=== PATIENT | female | born 1935 | race Caucasian/White ===

== ENCOUNTER 2024-02-19 13:00 | Inpatient (IN) | payer MEDICARE ==
[~2024-02-19] VITALS: Ht 154.9 cm; Wt 60.8 kg
[~2024-02-19 13:00] MED LIST: ASPIRIN81 MG PO; CALCIUM600 MG; CLOPIDOGREL75 MG PO; CRESTOR10 MG PO; HYDROCHLOROTHIA25 MG; K-DUR10 MEQ PO; LAMOTRIGINE100 MG PO; LAMOTRIGINE25 MG; LEVOTHYROXINE50 MCG PO; LOSARTAN POTAS100 MG PO; LOSARTAN POTASS25 MG PO; MELATONIN3 MG PO; NAMENDA10 MG PO; OLANZAPINE5 MG PO; TROSPIUM CHLORI20 MG
[2024-02-19 15:20] LABS: BASOPHILS % 0.2 % (0.0-1.0); EOSINOPHILS % 0.1 % (0.0-6.0); HEMATOCRIT 28.9 % (34.2-44.1); HEMOGLOBIN 9.9 g/dL (12.0-16.0); LYMPHOCYTES # (AUTO) 0.9 (1.0-3.2); MEAN CORPUSCULAR HEMOGLOBIN 30.6 pg (28-32); MEAN CORPUSCULAR HGB CONC 34.3 g/dL (31-35); MEAN CORPUSCULAR VOLUME 89.2 fL (81-99); MONOCYTES # (AUTO) 1.1 (0.2-0.8); MONOCYTES % 6.3 % (4.4-11.3); NEUTROPHILS # (AUTO) 15.6 (2.1-6.9); NEUTROPHILS % 87.7 % (38.7-80.0); PLATELET COUNT 322 x10e3/uL (140-360); RED BLOOD COUNT 3.24 x10e6/uL (3.6-5.1); RED CELL DISTRIBUTION WIDTH 13.9 % (11.7-14.4); WHITE BLOOD COUNT 17.84 x10e3/uL (4.8-10.8)
[2024-02-19 15:27] LABS: BILIRUBIN,URINE NEGATIVE (NEGATIVE); CLARITY,URINE CLEAR (CLEAR); COLOR,URINE YELLOW (YELLOW); GLUCOSE, URINE NEGATIVE (NEGATIVE); KETONES,URINE NEGATIVE (NEGATIVE); LEUKOCYTE ESTERASE ,URINE NEGATIVE (NEGATIVE); NITRITE,URINE NEGATIVE (NEGATIVE); PH,URINE 6 (5 - 7); PROTEIN,URINE DIPSTICK NEGATIVE (NEGATIVE); URINE UROBILINOGEN 0.2 mg/dL (0.2 - 1)
[2024-02-19 15:41] LABS: BACTERIA,URINE MODERATE /HPF; EPITHELIAL CELLS,URINE FEW /LPF
[2024-02-19 15:41] LABS: ALBUMIN/GLOBULIN RATIO 1.1 (0.8-2.0); ANION GAP 18.1 mmol/L (8-16); CREATININE, SERUM 1.42 mg/dL (0.57-1.11); TOTAL PROTEIN 7.5 g/dL (6.5-8.1)
[2024-02-19 15:42] LABS: POTASSIUM 3.1 mmol/L (3.5-5.1)
[2024-02-19] MEDS ORDERED: LASIX40 MG PO (16:13)
[2024-02-19] MEDS ORDERED: ONDANSETRON HCL INJ 2MG/ML 2ML 2 MG/ML VIAL IV PRN (16:30)
[2024-02-19] MEDS: FUROSEMIDE INJ 10 MG/ML 4 ML VIAL IV ONE (16:40)
[2024-02-19] MEDS: SODIUM CHLORIDE 0.9% 1000ML 1,000 ML IV SCH (16:41)
[2024-02-19] MEDS: POTASSIUM CHLORIDE 20 MEQ TAB CR PO ONE (17:33)
[2024-02-19 20:30] VITALS: PULSE 80; RESP 23; TEMP 98.5
[2024-02-19 22:00] VITALS: BP 129/66; PULSE 80; RESP 23; TEMP 98.5; O2SAT 97
[2024-02-19 22:05] VITALS: BP 117/54; PULSE 80; RESP 16; TEMP 98.7; O2SAT 96
[2024-02-20] VITALS (7 sets, daily range): BP systolic 98–129; BP diastolic 48–68; PULSE 72–81; RESP 16–20; TEMP 97.6–98.8; O2SAT 96–100
[2024-02-20] MEDS: FUROSEMIDE INJ 10 MG/ML 4 ML VIAL IV SCH (05:54)
[2024-02-20 06:07] LABS: BASOPHILS % 0.2 % (0.0-1.0); EOSINOPHILS # (AUTO) 0.2 (0.0-0.4); EOSINOPHILS % 2.1 % (0.0-6.0); HEMATOCRIT 31.1 % (34.2-44.1); LYMPHOCYTES # (AUTO) 1.4 (1.0-3.2); LYMPHOCYTES % 13.8 % (18.0-39.1); MEAN CORPUSCULAR HEMOGLOBIN 29.9 pg (28-32); MEAN CORPUSCULAR HGB CONC 32.2 g/dL (31-35); MEAN CORPUSCULAR VOLUME 93.1 fL (81-99); MONOCYTES # (AUTO) 0.8 (0.2-0.8); MONOCYTES % 7.6 % (4.4-11.3); NEUTROPHILS # (AUTO) 7.6 (2.1-6.9); NEUTROPHILS % 75.8 % (38.7-80.0); PLATELET COUNT 334 x10e3/uL (140-360); RED BLOOD COUNT 3.34 x10e6/uL (3.6-5.1); RED CELL DISTRIBUTION WIDTH 14.1 % (11.7-14.4); WHITE BLOOD COUNT 9.96 x10e3/uL (4.8-10.8)
[2024-02-20 06:24] LABS: ALBUMIN 3.7 g/dL (3.5-5.0); ALBUMIN/GLOBULIN RATIO 1.3 (0.8-2.0); ANION GAP 15.6 mmol/L (8-16); BILIRUBIN,TOTAL 0.6 mg/dL (0.2-1.2); CALCIUM 8.8 mg/dL (8.4-10.2); CREATININE, SERUM 1.4 mg/dL (0.57-1.11); POTASSIUM 3.6 mmol/L (3.5-5.1); TOTAL PROTEIN 6.6 g/dL (6.5-8.1)
[2024-02-20] MEDS: LEVOTHYROXINE SODIUM 25 MCG TABLET PO SCH (09:00)
[2024-02-20] MEDS: MEMANTINE 10 MG TAB PO SCH (09:18)
[2024-02-20] MEDS: ASPIRIN 81 MG CHEW TAB PO SCH (09:18)
[2024-02-20] MEDS: LAMOTRIGINE 100 MG TAB PO SCH (09:18)
[2024-02-20] MEDS: SIMVASTATIN 20 MG TAB PO SCH (09:19)
[2024-02-20] MEDS: CLOPIDOGREL BISULFATE 75 MG TAB PO SCH (09:19)
[2024-02-20] MEDS: OLANZAPINE 5 MG TAB PO SCH (09:19)
[2024-02-20] MEDS: LOSARTAN POTASSIUM 25 MG TAB PO SCH (09:19)
[2024-02-20] MEDS: BENZONATATE 100 MG CAP PO PRN (13:37)
[2024-02-20] MEDS: MELATONIN 5 MG TABLET PO SCH (20:38)
[2024-02-21 00:35] VITALS: BP 113/68; PULSE 72; RESP 17; TEMP 98; O2SAT 99
[2024-02-21 05:18] VITALS: BP 125/60; PULSE 67; RESP 16; TEMP 98; O2SAT 100
[2024-02-21 05:52] LABS: BASOPHILS # (AUTO) 0.1 (0.0-0.1); BASOPHILS % 0.9 % (0.0-1.0); EOSINOPHILS # (AUTO) 0.4 (0.0-0.4); EOSINOPHILS % 5.6 % (0.0-6.0); HEMATOCRIT 29.4 % (34.2-44.1); HEMOGLOBIN 9.8 g/dL (12.0-16.0); LYMPHOCYTES # (AUTO) 1.5 (1.0-3.2); LYMPHOCYTES % 22.6 % (18.0-39.1); MEAN CORPUSCULAR HEMOGLOBIN 30.5 pg (28-32); MEAN CORPUSCULAR HGB CONC 33.3 g/dL (31-35); MEAN CORPUSCULAR VOLUME 91.6 fL (81-99); MONOCYTES # (AUTO) 0.7 (0.2-0.8); NEUTROPHILS # (AUTO) 3.9 (2.1-6.9); NEUTROPHILS % 59.3 % (38.7-80.0); PLATELET COUNT 295 x10e3/uL (140-360); RED BLOOD COUNT 3.21 x10e6/uL (3.6-5.1); RED CELL DISTRIBUTION WIDTH 14.3 % (11.7-14.4); WHITE BLOOD COUNT 6.63 x10e3/uL (4.8-10.8)
[2024-02-21 06:06] LABS: ANION GAP 14.5 mmol/L (8-16); CALCIUM 8.6 mg/dL (8.4-10.2); CREATININE, SERUM 1.28 mg/dL (0.57-1.11); POTASSIUM 3.5 mmol/L (3.5-5.1)
[2024-02-21 08:20] VITALS: BP 132/66; PULSE 67; RESP 18; TEMP 98.2; O2SAT 98
[2024-02-21 09:00] VITALS: BP 125/60; PULSE 67; RESP 16; TEMP 98; O2SAT 100
[2024-02-21 20:00] VITALS: BP 125/60; PULSE 67; RESP 16; TEMP 98; O2SAT 100
[2024-02-21 21:19] VITALS: BP 139/57; PULSE 78; RESP 17; TEMP 98.4; O2SAT 96
[2024-02-22] VITALS (7 sets, daily range): BP systolic 97–124; BP diastolic 48–94; PULSE 70–85; RESP 16–20; TEMP 97.4–98.3; O2SAT 96–100
[2024-02-22] MEDS ORDERED: PROPOFOL IV EMULSION 50 ML IV ONE (06:59)
[2024-02-22] MEDS ORDERED: PHENYLEPHRINE HCL 1% 10 MG/ML VIAL ONE (06:59)
[2024-02-22] MEDS ORDERED: SODIUM CHLORIDE 0.9% 100 ML ONE (07:00)
[2024-02-22 07:38] LABS: BASOPHILS # (AUTO) 0.1 (0.0-0.1); BASOPHILS % 0.7 % (0.0-1.0); EOSINOPHILS # (AUTO) 0.4 (0.0-0.4); HEMATOCRIT 33.1 % (34.2-44.1); HEMOGLOBIN 10.3 g/dL (12.0-16.0); LYMPHOCYTES # (AUTO) 1.3 (1.0-3.2); LYMPHOCYTES % 18.2 % (18.0-39.1); MEAN CORPUSCULAR HEMOGLOBIN 29.6 pg (28-32); MEAN CORPUSCULAR HGB CONC 31.1 g/dL (31-35); MEAN CORPUSCULAR VOLUME 95.1 fL (81-99); MONOCYTES # (AUTO) 0.6 (0.2-0.8); NEUTROPHILS # (AUTO) 4.6 (2.1-6.9); NEUTROPHILS % 65.5 % (38.7-80.0); PLATELET COUNT 339 x10e3/uL (140-360); RED BLOOD COUNT 3.48 x10e6/uL (3.6-5.1); RED CELL DISTRIBUTION WIDTH 14.5 % (11.7-14.4); WHITE BLOOD COUNT 6.97 x10e3/uL (4.8-10.8)
[2024-02-22 08:04] LABS: ALBUMIN 3.6 g/dL (3.5-5.0); ALBUMIN/GLOBULIN RATIO 1.3 (0.8-2.0); ANION GAP 15.4 mmol/L (8-16); BILIRUBIN,TOTAL 0.7 mg/dL (0.2-1.2); CALCIUM 9.2 mg/dL (8.4-10.2); CREATININE, SERUM 1.48 mg/dL (0.57-1.11); MAGNESIUM 2.1 MG/DL (1.3-2.1); TOTAL PROTEIN 6.4 g/dL (6.5-8.1)
[2024-02-22 08:07] LABS: POTASSIUM 3.4 mmol/L (3.5-5.1)
[2024-02-22 16:14] LABS: ANION GAP 19.6 mmol/L (8-16); CALCIUM 9.4 mg/dL (8.4-10.2); CREATININE, SERUM 1.97 mg/dL (0.57-1.11); MAGNESIUM 1.9 MG/DL (1.3-2.1); POTASSIUM 3.6 mmol/L (3.5-5.1)
[2024-02-23] VITALS (9 sets, daily range): BP systolic 111–141; BP diastolic 51–67; PULSE 67–95; RESP 16–21; TEMP 97.9–99; O2SAT 94–100
[2024-02-23] MEDS ORDERED: ONDANSETRON HCL 4 MG ORAL DISINTEGRATING TAB PO PRN (13:45)
[2024-02-24] VITALS (9 sets, daily range): BP systolic 98–143; BP diastolic 45–74; PULSE 74–86; RESP 15–16; TEMP 97.2–98.3; O2SAT 92–100
[2024-02-24 06:03] LABS: BASOPHILS % 0.6 % (0.0-1.0); EOSINOPHILS # (AUTO) 0.3 (0.0-0.4); EOSINOPHILS % 4.9 % (0.0-6.0); HEMATOCRIT 31.2 % (34.2-44.1); HEMOGLOBIN 9.9 g/dL (12.0-16.0); LYMPHOCYTES # (AUTO) 1.3 (1.0-3.2); LYMPHOCYTES % 18.7 % (18.0-39.1); MEAN CORPUSCULAR HEMOGLOBIN 30.2 pg (28-32); MEAN CORPUSCULAR HGB CONC 31.7 g/dL (31-35); MEAN CORPUSCULAR VOLUME 95.1 fL (81-99); MONOCYTES # (AUTO) 0.6 (0.2-0.8); MONOCYTES % 8.8 % (4.4-11.3); NEUTROPHILS # (AUTO) 4.6 (2.1-6.9); NEUTROPHILS % 66.4 % (38.7-80.0); PLATELET COUNT 309 x10e3/uL (140-360); RED BLOOD COUNT 3.28 x10e6/uL (3.6-5.1); RED CELL DISTRIBUTION WIDTH 14.2 % (11.7-14.4); WHITE BLOOD COUNT 6.94 x10e3/uL (4.8-10.8)
[2024-02-24 06:41] LABS: ALBUMIN 3.3 g/dL (3.5-5.0); ALBUMIN/GLOBULIN RATIO 1.3 (0.8-2.0); ANION GAP 14.4 mmol/L (8-16); BILIRUBIN,TOTAL 0.6 mg/dL (0.2-1.2); CALCIUM 8.8 mg/dL (8.4-10.2); CREATININE, SERUM 1.55 mg/dL (0.57-1.11); POTASSIUM 3.4 mmol/L (3.5-5.1); TOTAL PROTEIN 5.8 g/dL (6.5-8.1)
[2024-02-25] VITALS (7 sets, daily range): BP systolic 127–136; BP diastolic 46–62; PULSE 71–86; RESP 16–17; TEMP 97.7–98.1; O2SAT 96–100
[2024-02-26] VITALS (9 sets, daily range): BP systolic 89–146; BP diastolic 48–80; PULSE 72–91; RESP 16–18; TEMP 97.3–98.7; O2SAT 97–98
[2024-02-26 07:03] LABS: BASOPHILS # (AUTO) 0.1 (0.0-0.1); BASOPHILS % 0.7 % (0.0-1.0); EOSINOPHILS # (AUTO) 0.4 (0.0-0.4); EOSINOPHILS % 5.7 % (0.0-6.0); HEMATOCRIT 29.7 % (34.2-44.1); HEMOGLOBIN 9.4 g/dL (12.0-16.0); LYMPHOCYTES # (AUTO) 1.3 (1.0-3.2); LYMPHOCYTES % 19.1 % (18.0-39.1); MEAN CORPUSCULAR HEMOGLOBIN 30.1 pg (28-32); MEAN CORPUSCULAR HGB CONC 31.6 g/dL (31-35); MEAN CORPUSCULAR VOLUME 95.2 fL (81-99); MONOCYTES # (AUTO) 0.6 (0.2-0.8); MONOCYTES % 9.5 % (4.4-11.3); NEUTROPHILS # (AUTO) 4.3 (2.1-6.9); NEUTROPHILS % 64.6 % (38.7-80.0); PLATELET COUNT 285 x10e3/uL (140-360); RED BLOOD COUNT 3.12 x10e6/uL (3.6-5.1); RED CELL DISTRIBUTION WIDTH 14.4 % (11.7-14.4); WHITE BLOOD COUNT 6.71 x10e3/uL (4.8-10.8)
[2024-02-26 07:44] LABS: ALBUMIN 3.5 g/dL (3.5-5.0); ALBUMIN/GLOBULIN RATIO 1.6 (0.8-2.0); ANION GAP 13.3 mmol/L (8-16); BILIRUBIN,TOTAL 0.7 mg/dL (0.2-1.2); CALCIUM 9.1 mg/dL (8.4-10.2); CREATININE, SERUM 1.83 mg/dL (0.57-1.11); TOTAL PROTEIN 5.7 g/dL (6.5-8.1)
[2024-02-26 07:50] LABS: POTASSIUM 3.3 mmol/L (3.5-5.1)
[2024-02-27] VITALS (8 sets, daily range): BP systolic 100–156; BP diastolic 55–90; PULSE 75–86; RESP 18–20; TEMP 97.3–98.5; O2SAT 94–100
[2024-02-27 07:34] LABS: BASOPHILS # (AUTO) 0.1 (0.0-0.1); BASOPHILS % 1.1 % (0.0-1.0); EOSINOPHILS # (AUTO) 0.4 (0.0-0.4); EOSINOPHILS % 5.4 % (0.0-6.0); HEMATOCRIT 33.2 % (34.2-44.1); HEMOGLOBIN 10.7 g/dL (12.0-16.0); LYMPHOCYTES # (AUTO) 1.2 (1.0-3.2); LYMPHOCYTES % 16.3 % (18.0-39.1); MEAN CORPUSCULAR HEMOGLOBIN 30.1 pg (28-32); MEAN CORPUSCULAR HGB CONC 32.2 g/dL (31-35); MEAN CORPUSCULAR VOLUME 93.5 fL (81-99); MONOCYTES # (AUTO) 0.6 (0.2-0.8); MONOCYTES % 8.4 % (4.4-11.3); NEUTROPHILS % 68.4 % (38.7-80.0); PLATELET COUNT 319 x10e3/uL (140-360); RED BLOOD COUNT 3.55 x10e6/uL (3.6-5.1); RED CELL DISTRIBUTION WIDTH 14.3 % (11.7-14.4); WHITE BLOOD COUNT 7.26 x10e3/uL (4.8-10.8)
[2024-02-27 07:42] LABS: ALBUMIN 3.9 g/dL (3.5-5.0); ALBUMIN/GLOBULIN RATIO 1.4 (0.8-2.0); ANION GAP 17.3 mmol/L (8-16); BILIRUBIN,TOTAL 0.8 mg/dL (0.2-1.2); CALCIUM 9.4 mg/dL (8.4-10.2); CREATININE, SERUM 1.95 mg/dL (0.57-1.11); MAGNESIUM 2.2 MG/DL (1.3-2.1); TOTAL PROTEIN 6.7 g/dL (6.5-8.1)
[2024-02-27 08:11] LABS: POTASSIUM 3.3 mmol/L (3.5-5.1)
[2024-02-28] VITALS (7 sets, daily range): BP systolic 107–143; BP diastolic 42–78; PULSE 72–105; RESP 18–20; TEMP 97.7–98.6; O2SAT 95–99
[2024-02-28] MEDS: FUROSEMIDE 40 MG TAB PO SCH (05:21)
[2024-02-28] MEDS: GUAIFENESIN/DEXTROMETHORPHAN LIQD 5 ML UDC NG PRN (08:40)
[2024-02-29] VITALS (11 sets, daily range): BP systolic 105–160; BP diastolic 44–70; PULSE 70–91; RESP 16–18; TEMP 98–98.6; O2SAT 95–98
[2024-02-29] MEDS: POTASSIUM CHLORIDE 20 MEQ TAB CR PO SCH (08:43)
[2024-03-01] VITALS: BP 154/86; PULSE 84; RESP 18; TEMP 98; O2SAT 96
[2024-03-01 04:00] VITALS: BP 134/71; PULSE 88; RESP 18; TEMP 98.6; O2SAT 96
[2024-03-01 08:00] VITALS: BP 128/52; PULSE 74; RESP 19; TEMP 98; O2SAT 96
[2024-03-01 09:40] VITALS: BP 128/52
== END 2024-03-01 12:30 | disposition home health service (06) | DRG 291 ==
LOC: ER 13:39 → ERHOLD 16:29 → MED/SURG3 22:00 → OBSVTOIN 02-22 10:33 → MED/SURG3 02-28 15:55
PROVIDERS: ADMIT Internal Medicine; ATTEND Internal Medicine
DX: I13.0 Hypertensive heart and chronic kidney disease with heart failure and stage 1 through stage 4 chronic kidney disease, or unspecified chronic kidney disease (principal); I50.33 Acute on chronic diastolic (congestive) heart failure; E87.1 Hypo-osmolality and hyponatremia; F03.94 Unspecified dementia, unspecified severity, with anxiety; N17.9 Acute kidney failure, unspecified; N18.30 Chronic kidney disease, stage 3 unspecified; I25.10 Atherosclerotic heart disease of native coronary artery without angina pectoris; E78.5 Hyperlipidemia, unspecified; J44.9 Chronic obstructive pulmonary disease, unspecified; E87.6 Hypokalemia; E03.9 Hypothyroidism, unspecified; Z11.52 Encounter for screening for COVID-19; H54.62 Unqualified visual loss, left eye, normal vision right eye; D64.9 Anemia, unspecified; I34.2 Nonrheumatic mitral (valve) stenosis; Z95.2 Presence of prosthetic heart valve; I69.398 Other sequelae of cerebral infarction; Z79.82 Long term (current) use of aspirin; Z79.02 Long term (current) use of antithrombotics/antiplatelets; Z79.890 Hormone replacement therapy; Z79.899 Other long term (current) drug therapy
CPT/HCPCS: 36415; 71045; 80048; 80053; 81001; 83735; 83880; 84484; 85025; 93306; 99252; 99284; G0378; J1940; J2371; J7030; J7050; U0002